=== PATIENT | male | born 1990 | race Caucasian/White ===

== ENCOUNTER 2021-08-25 15:03 | Inpatient (IN) | payer OTHER ==
[~2021-08-25] VITALS: Ht 170.2 cm; Wt 119.7 kg
[2021-08-25 19:00] VITALS: BP 138/75
[2021-08-25] MEDS ORDERED: FEXOFENADINE HCL 60 MG TABLET PO PRN (19:15)
[2021-08-25] MEDS ORDERED: ONDANSETRON HCL 4 MG TABLET PO PRN (19:15)
[2021-08-25] MEDS ORDERED: ACETAMINOPHEN 325 MG TABLET PO PRN (19:15)
[2021-08-25 21:20] VITALS: BP 145/80
[2021-08-25] MEDS: ClonazePAM 1 MG TABLET PO SCH (21:23)
[2021-08-25] MEDS: PRAZOSIN HCL 2 MG CAPSULE PO SCH (21:24)
[2021-08-25] MEDS: TraZODone HCL 100 MG TABLET PO SCH (21:24)
[2021-08-25] MEDS: CELECOXIB 200 MG CAPSULE PO SCH (21:25)
[2021-08-25] MEDS: DOCUSATE SODIUM 100 MG CAPSULE PO SCH (21:25)
[2021-08-25] MEDS: GABAPENTIN 300 MG CAPSULE PO SCH (21:25)
[2021-08-25] MEDS: ETHYL ALCOHOL 62% ANTISEPTIC NASAL INHALANT 0.6 ML AMPUL NASAL SCH (21:25)
[2021-08-25] MEDS: SENNA 187 MG TABLET PO SCH (21:26)
[2021-08-25] MEDS ORDERED: MELATONIN 3 MG TABLET PO ONE (21:45)
[2021-08-26] VITALS: BP 116/65
[2021-08-26] MEDS ORDERED: INFLUENZA VIRUS VACCINE QVS 2021-22 (6MO+)/PF 60 MCG/0.5 ML SYRINGE IM. ONE (03:00)
[2021-08-26 07:14] LABS: BASOPHILS % (AUTO) 0.5 % (0.0-2.0); EOSINOPHILS % (AUTO) 3.8 % (1.0-6.0); HEMATOCRIT 37.9 % (41-53); LYMPHOCYTES # (AUTO) 2.5 K/uL (1.0-4.8); LYMPHOCYTES % (AUTO) 40.2 % (22.0-44.0); MEAN CORPUSCULAR HEMOGLOBIN 29.2 pg (26.0-34.0); MEAN CORPUSCULAR HGB CONC 34.3 G/dL (31.0-37.0); MEAN CORPUSCULAR VOLUME 85 fL (80-100); MONOCYTES # (AUTO) 0.5 K/uL (0.1-1.0); MONOCYTES % (AUTO) 8.2 % (2.0-9.0); NEUTROPHILS # (AUTO) 2.9 K/uL (1.8-7.7); NEUTROPHILS % (AUTO) 47.3 % (40.0-70.0); PLATELET COUNT (AUTO) 241 K/uL (150-450); RED BLOOD CELL COUNT(AUTO) 4.44 MIL/uL (4.50-5.90); RED CELL DISTRIBUTION WIDTH 14.2 % (11.5-14.5)
[2021-08-26 07:45] LABS: ALANINE AMINOTRANSFERASE 90 U/L (12-78); ALBUMIN 3.7 g/dL (3.4-5.0); ALKALINE PHOSPHATASE 55 U/L (46-116); ANION GAP 5 mmol/L (8-16); ASPARTATE AMINOTRANSFERASE 30 U/L (15-37); BILIRUBIN,TOTAL 0.3 mg/dL (0.1-1.0); CALCIUM, TOTAL 9.1 mg/dL (8.8-10.5); CARBON DIOXIDE 30 mmol/L (22-29); CHLORIDE 104 mmol/L (98-107); CREATININE 0.95 mg/dL (0.60-1.30); GLOMERULAR FILTR. RATE CALC > 60 mL/min (>60); GLUCOSE,RANDOM 100 mg/dL (70-110); POTASSIUM 4.3 mmol/L (3.5-5.1); SODIUM SERUM 139 mmol/L (136-145); TOTAL PROTEIN, SERUM 7.3 g/dL (6.4-8.2); UREA NITROGEN, BLOOD 16 mg/dL (7-18)
[2021-08-26] MEDS: ETHYL ALCOHOL 62% ANTISEPTIC NASAL INHALANT 0.6 ML AMPUL NASAL SCH ×2 (08:28→21:00)
[2021-08-26] MEDS: ENOXAPARIN SODIUM 40 MG/0.4 ML PF SYRINGE SQ SCH (08:29)
[2021-08-26] MEDS: SERTRALINE HCL 100 MG TABLET PO SCH (08:29)
[2021-08-26] MEDS: DOCUSATE SODIUM 100 MG CAPSULE PO SCH ×2 (08:29→21:01)
[2021-08-26] MEDS: GABAPENTIN 300 MG CAPSULE PO SCH ×3 (08:29→21:01)
[2021-08-26] MEDS: MAGNESIUM OXIDE 400 MG TABLET PO SCH (08:30)
[2021-08-26] MEDS: CELECOXIB 200 MG CAPSULE PO SCH ×2 (08:30→17:46)
[2021-08-26] MEDS: ClonazePAM 1 MG TABLET PO SCH ×2 (08:30→21:01)
[2021-08-26 10:32] VITALS: BP 125/84
[2021-08-26] MEDS ORDERED: *PATIENT'S OWN MED [ENTER DRUG, DOSE, FREQUENCY IN COMMENTS] CLINICAL ONE (14:45)
[2021-08-26 16:28] VITALS: BP 149/84
[2021-08-26 20:10] VITALS: BP 132/88
[2021-08-26] MEDS: PRAZOSIN HCL 2 MG CAPSULE PO SCH (21:01)
[2021-08-26] MEDS: SENNA 187 MG TABLET PO SCH (21:01)
[2021-08-26] MEDS: TraZODone HCL 100 MG TABLET PO SCH (21:01)
[2021-08-27 06:00] VITALS: BP 115/60
[2021-08-27] MEDS: ETHYL ALCOHOL 62% ANTISEPTIC NASAL INHALANT 0.6 ML AMPUL NASAL SCH ×2 (08:06→20:51)
[2021-08-27] MEDS: CELECOXIB 200 MG CAPSULE PO SCH ×2 (08:07→17:43)
[2021-08-27] MEDS: GABAPENTIN 300 MG CAPSULE PO SCH ×3 (08:07→20:53)
[2021-08-27] MEDS: ENOXAPARIN SODIUM 40 MG/0.4 ML PF SYRINGE SQ SCH (08:07)
[2021-08-27] MEDS: LISDEXAMFETAMINE 40 MG PO SCH (08:07)
[2021-08-27] MEDS: SERTRALINE HCL 100 MG TABLET PO SCH (08:08)
[2021-08-27] MEDS: DOCUSATE SODIUM 100 MG CAPSULE PO SCH ×2 (08:08→20:51)
[2021-08-27] MEDS: MAGNESIUM OXIDE 400 MG TABLET PO SCH (08:08)
[2021-08-27] MEDS: ClonazePAM 1 MG TABLET PO SCH ×2 (08:16→20:51)
[2021-08-27 09:53] VITALS: BP 126/71
[2021-08-27] MEDS ORDERED: DiphenhydrAMINE HCL 50 MG CAPSULE PO ONE (14:15)
[2021-08-27] MEDS ORDERED: QUEtiapine FUMARATE 100 MG TABLET PO ONE (14:15)
[2021-08-27 17:45] VITALS: BP 160/68
[2021-08-27 20:50] VITALS: BP 115/51
[2021-08-27] MEDS: SENNA 187 MG TABLET PO SCH (20:51)
[2021-08-27] MEDS: HYPROMELLOSE 0.5% 15 ML OPHTHALMIC SOLUTION OU PRN (20:52)
[2021-08-27] MEDS: MELATONIN 3 MG TABLET PO SCH (20:52)
[2021-08-27] MEDS: PRAZOSIN HCL 1 MG CAPSULE PO SCH (20:52)
[2021-08-27] MEDS: TraZODone HCL 100 MG TABLET PO SCH (20:53)
[2021-08-28 04:00] VITALS: BP 108/45
[2021-08-28] MEDS: ClonazePAM 1 MG TABLET PO SCH ×2 (08:00→23:29)
[2021-08-28] MEDS: DOCUSATE SODIUM 100 MG CAPSULE PO SCH ×2 (08:00→23:29)
[2021-08-28] MEDS: GABAPENTIN 300 MG CAPSULE PO SCH ×3 (08:00→23:29)
[2021-08-28] MEDS: ENOXAPARIN SODIUM 40 MG/0.4 ML PF SYRINGE SQ SCH (08:00)
[2021-08-28] MEDS: SERTRALINE HCL 100 MG TABLET PO SCH (08:01)
[2021-08-28] MEDS: MAGNESIUM OXIDE 400 MG TABLET PO SCH (08:01)
[2021-08-28] MEDS: CELECOXIB 200 MG CAPSULE PO SCH ×2 (08:01→17:40)
[2021-08-28] MEDS: ETHYL ALCOHOL 62% ANTISEPTIC NASAL INHALANT 0.6 ML AMPUL NASAL SCH ×2 (08:02→23:29)
[2021-08-28] MEDS: LISDEXAMFETAMINE 40 MG PO SCH (08:30)
[2021-08-28 10:00] VITALS: BP 114/53
[2021-08-28 16:03] VITALS: BP 110/89
[2021-08-28] MEDS: MELATONIN 3 MG TABLET PO SCH (21:00)
[2021-08-28] MEDS: SENNA 187 MG TABLET PO SCH (23:28)
[2021-08-28] MEDS: PRAZOSIN HCL 1 MG CAPSULE PO SCH (23:29)
[2021-08-28] MEDS: TraZODone HCL 100 MG TABLET PO SCH (23:30)
[2021-08-29] VITALS: BP 118/83
[2021-08-29] MEDS: DOCUSATE SODIUM 100 MG CAPSULE PO SCH ×2 (08:05→21:12)
[2021-08-29] MEDS: GABAPENTIN 300 MG CAPSULE PO SCH ×3 (08:05→21:12)
[2021-08-29] MEDS: LISDEXAMFETAMINE 40 MG PO SCH (08:05)
[2021-08-29] MEDS: ClonazePAM 1 MG TABLET PO SCH ×2 (08:06→21:12)
[2021-08-29] MEDS: MAGNESIUM OXIDE 400 MG TABLET PO SCH (08:06)
[2021-08-29] MEDS: SERTRALINE HCL 100 MG TABLET PO SCH (08:06)
[2021-08-29] MEDS: ENOXAPARIN SODIUM 40 MG/0.4 ML PF SYRINGE SQ SCH (08:07)
[2021-08-29] MEDS: CELECOXIB 200 MG CAPSULE PO SCH ×2 (08:07→16:08)
[2021-08-29 08:43] VITALS: BP 113/68
[2021-08-29] MEDS: ETHYL ALCOHOL 62% ANTISEPTIC NASAL INHALANT 0.6 ML AMPUL NASAL SCH ×2 (08:48→21:12)
[2021-08-29] MEDS ORDERED: HYDROCODONE/ACETAMINOPHEN 5-325 MG TABLET PO PRN (12:50)
[2021-08-29 16:14] VITALS: BP 108/77
[2021-08-29 21:12] VITALS: BP 139/86
[2021-08-29] MEDS: SENNA 187 MG TABLET PO SCH (21:12)
[2021-08-29] MEDS: MELATONIN 3 MG TABLET PO SCH (21:12)
[2021-08-29] MEDS: TraZODone HCL 100 MG TABLET PO SCH (21:12)
[2021-08-29] MEDS: PRAZOSIN HCL 1 MG CAPSULE PO SCH (21:13)
[2021-08-30 03:00] VITALS: BP 107/44
[2021-08-30] MEDS: LISDEXAMFETAMINE 40 MG PO SCH (08:03)
[2021-08-30] MEDS: ClonazePAM 1 MG TABLET PO SCH ×2 (08:04→22:22)
[2021-08-30] MEDS: DOCUSATE SODIUM 100 MG CAPSULE PO SCH ×2 (08:04→22:22)
[2021-08-30] MEDS: ETHYL ALCOHOL 62% ANTISEPTIC NASAL INHALANT 0.6 ML AMPUL NASAL SCH ×2 (08:04→22:21)
[2021-08-30] MEDS: GABAPENTIN 300 MG CAPSULE PO SCH ×3 (08:04→22:22)
[2021-08-30] MEDS: ENOXAPARIN SODIUM 40 MG/0.4 ML PF SYRINGE SQ SCH (08:04)
[2021-08-30] MEDS: MAGNESIUM OXIDE 400 MG TABLET PO SCH (08:04)
[2021-08-30 09:00] VITALS: BP 111/63
[2021-08-30] MEDS: CELECOXIB 200 MG CAPSULE PO SCH ×2 (10:34→17:37)
[2021-08-30] MEDS: SERTRALINE HCL 100 MG TABLET PO SCH (10:34)
[2021-08-30] MEDS: HYPROMELLOSE 0.5% 15 ML OPHTHALMIC SOLUTION OU PRN (14:36)
[2021-08-30 16:05] VITALS: BP 131/79
[2021-08-30 21:00] VITALS: BP 138/80
[2021-08-30] MEDS: SENNA 187 MG TABLET PO SCH (22:22)
[2021-08-30] MEDS: MELATONIN 3 MG TABLET PO SCH (22:22)
[2021-08-30] MEDS: TraZODone HCL 100 MG TABLET PO SCH (22:22)
[2021-08-30] MEDS: PRAZOSIN HCL 1 MG CAPSULE PO SCH (22:22)
[2021-08-31] VITALS: BP 122/83
[2021-08-31] MEDS: ClonazePAM 1 MG TABLET PO SCH ×2 (08:39→21:51)
[2021-08-31] MEDS: DOCUSATE SODIUM 100 MG CAPSULE PO SCH ×2 (08:39→21:50)
[2021-08-31] MEDS: ETHYL ALCOHOL 62% ANTISEPTIC NASAL INHALANT 0.6 ML AMPUL NASAL SCH ×2 (08:39→21:50)
[2021-08-31] MEDS: GABAPENTIN 300 MG CAPSULE PO SCH ×3 (08:40→21:51)
[2021-08-31] MEDS: MAGNESIUM OXIDE 400 MG TABLET PO SCH (08:40)
[2021-08-31] MEDS: CELECOXIB 200 MG CAPSULE PO SCH ×2 (08:40→17:20)
[2021-08-31] MEDS: SERTRALINE HCL 100 MG TABLET PO SCH (08:40)
[2021-08-31] MEDS: LISDEXAMFETAMINE 40 MG PO SCH (08:40)
[2021-08-31] MEDS: ENOXAPARIN SODIUM 40 MG/0.4 ML PF SYRINGE SQ SCH (08:55)
[2021-08-31 09:00] VITALS: BP 102/49
[2021-08-31 16:30] VITALS: BP 130/74
[2021-08-31] MEDS: PRAZOSIN HCL 1 MG CAPSULE PO SCH (21:51)
[2021-08-31] MEDS: MELATONIN 3 MG TABLET PO SCH (21:51)
[2021-08-31] MEDS: SENNA 187 MG TABLET PO SCH (21:51)
[2021-08-31] MEDS: TraZODone HCL 100 MG TABLET PO SCH (21:51)
[2021-09-01] VITALS: BP 135/74
[2021-09-01] MEDS: GABAPENTIN 300 MG CAPSULE PO SCH ×3 (07:30→20:18)
[2021-09-01] MEDS: ENOXAPARIN SODIUM 40 MG/0.4 ML PF SYRINGE SQ SCH (07:30)
[2021-09-01] MEDS: LISDEXAMFETAMINE 40 MG PO SCH (07:30)
[2021-09-01] MEDS: DOCUSATE SODIUM 100 MG CAPSULE PO SCH ×2 (07:31→20:18)
[2021-09-01] MEDS: MAGNESIUM OXIDE 400 MG TABLET PO SCH (07:31)
[2021-09-01] MEDS: ClonazePAM 1 MG TABLET PO SCH ×2 (07:31→20:18)
[2021-09-01] MEDS: CELECOXIB 200 MG CAPSULE PO SCH ×2 (07:32→18:07)
[2021-09-01] MEDS: ETHYL ALCOHOL 62% ANTISEPTIC NASAL INHALANT 0.6 ML AMPUL NASAL SCH ×2 (07:32→20:18)
[2021-09-01] MEDS: SERTRALINE HCL 100 MG TABLET PO SCH (07:32)
[2021-09-01 08:01] VITALS: BP 147/59
[2021-09-01] MEDS: HYPROMELLOSE 0.5% 15 ML OPHTHALMIC SOLUTION OU PRN (10:00)
[2021-09-01] MEDS ORDERED: QUEtiapine FUMARATE 100 MG TABLET PO PRN (11:45)
[2021-09-01] MEDS ORDERED: DiphenhydrAMINE HCL 50 MG CAPSULE PO PRN (11:45)
[2021-09-01 18:09] VITALS: BP 147/107
[2021-09-01 20:15] VITALS: BP 148/85
[2021-09-01] MEDS: PRAZOSIN HCL 1 MG CAPSULE PO SCH (20:18)
[2021-09-01] MEDS: MELATONIN 3 MG TABLET PO SCH (20:18)
[2021-09-01] MEDS: SENNA 187 MG TABLET PO SCH (20:18)
[2021-09-01] MEDS: TraZODone HCL 100 MG TABLET PO SCH (20:18)
[2021-09-02 06:15] VITALS: BP 119/53
[2021-09-02] MEDS: ClonazePAM 1 MG TABLET PO SCH ×2 (08:18→21:31)
[2021-09-02] MEDS: MAGNESIUM OXIDE 400 MG TABLET PO SCH (08:21)
[2021-09-02] MEDS: GABAPENTIN 300 MG CAPSULE PO SCH ×3 (08:21→21:32)
[2021-09-02] MEDS: SERTRALINE HCL 100 MG TABLET PO SCH (08:21)
[2021-09-02] MEDS: LISDEXAMFETAMINE 40 MG PO SCH (08:21)
[2021-09-02] MEDS: CELECOXIB 200 MG CAPSULE PO SCH ×2 (08:22→18:14)
[2021-09-02] MEDS: ETHYL ALCOHOL 62% ANTISEPTIC NASAL INHALANT 0.6 ML AMPUL NASAL SCH ×2 (08:22→21:31)
[2021-09-02] MEDS: DOCUSATE SODIUM 100 MG CAPSULE PO SCH ×2 (08:22→21:31)
[2021-09-02] MEDS: ENOXAPARIN SODIUM 40 MG/0.4 ML PF SYRINGE SQ SCH (08:23)
[2021-09-02 08:27] LABS: BASOPHILS % (AUTO) 0.7 % (0.0-2.0); EOSINOPHILS % (AUTO) 5.1 % (1.0-6.0); HEMATOCRIT 37.6 % (41-53); HEMOGLOBIN 12.8 g/dL (13.5-17.5); LYMPHOCYTES # (AUTO) 2.2 K/uL (1.0-4.8); LYMPHOCYTES % (AUTO) 40.1 % (22.0-44.0); MEAN CORPUSCULAR HEMOGLOBIN 29.1 pg (26.0-34.0); MEAN CORPUSCULAR VOLUME 86 fL (80-100); MONOCYTES # (AUTO) 0.4 K/uL (0.1-1.0); NEUTROPHILS # (AUTO) 2.6 K/uL (1.8-7.7); NEUTROPHILS % (AUTO) 47.1 % (40.0-70.0); PLATELET COUNT (AUTO) 215 K/uL (150-450)
[2021-09-02 08:38] VITALS: BP 139/76
[2021-09-02 08:43] LABS: IRON, SERUM 54 mcg/dL (50-175)
[2021-09-02 08:58] LABS: ALANINE AMINOTRANSFERASE 148 U/L (12-78); ALBUMIN 3.8 g/dL (3.4-5.0); ALKALINE PHOSPHATASE 63 U/L (46-116); ANION GAP 7 mmol/L (8-16); ASPARTATE AMINOTRANSFERASE 52 U/L (15-37); BILIRUBIN,TOTAL 0.3 mg/dL (0.1-1.0); CALCIUM, TOTAL 8.6 mg/dL (8.8-10.5); CARBON DIOXIDE 28 mmol/L (22-29); CHLORIDE 105 mmol/L (98-107); CHOL/HDL RATIO 6.5 (4.2-7.3); CHOLESTEROL 195 mg/dL (131-200); CREATININE 1.07 mg/dL (0.60-1.30); FERRITIN 120 ng/mL (26-388); GLOMERULAR FILTR. RATE CALC > 60 mL/min (>60); GLUCOSE,RANDOM 102 mg/dL (70-110); HDL CHOLESTEROL 30 mg/dL (40-60); LDL CHOL (CALC.) 112 mg/dL (0-130); SODIUM SERUM 140 mmol/L (136-145); THYROID STIMULATING HORMONE 1.45 uIU/mL (0.36-3.74); TOTAL PROTEIN, SERUM 7.4 g/dL (6.4-8.2); TRIGLYCERIDES 264 mg/dL (15-150); UREA NITROGEN, BLOOD 17 mg/dL (7-18)
[2021-09-02 15:44] VITALS: BP 139/95
[2021-09-02 21:31] VITALS: BP 154/80
[2021-09-02] MEDS: ATORVASTATIN CALCIUM 10 MG TABLET PO SCH (21:31)
[2021-09-02] MEDS: SENNA 187 MG TABLET PO SCH (21:31)
[2021-09-02] MEDS: TraZODone HCL 100 MG TABLET PO SCH (21:32)
[2021-09-02] MEDS: MELATONIN 3 MG TABLET PO SCH (21:32)
[2021-09-02] MEDS: PRAZOSIN HCL 1 MG CAPSULE PO SCH (21:32)
[2021-09-03 00:40] VITALS: BP 103/63
[2021-09-03] MEDS: CELECOXIB 200 MG CAPSULE PO SCH ×2 (07:32→17:35)
[2021-09-03] MEDS: ETHYL ALCOHOL 62% ANTISEPTIC NASAL INHALANT 0.6 ML AMPUL NASAL SCH ×2 (07:59→20:44)
[2021-09-03] MEDS: LISDEXAMFETAMINE 40 MG PO SCH (07:59)
[2021-09-03] MEDS: DOCUSATE SODIUM 100 MG CAPSULE PO SCH ×2 (07:59→20:49)
[2021-09-03] MEDS: ENOXAPARIN SODIUM 40 MG/0.4 ML PF SYRINGE SQ SCH (08:00)
[2021-09-03] MEDS: SERTRALINE HCL 100 MG TABLET PO SCH (08:00)
[2021-09-03] MEDS: ClonazePAM 1 MG TABLET PO SCH ×2 (08:01→20:48)
[2021-09-03] MEDS: GABAPENTIN 300 MG CAPSULE PO SCH ×3 (08:01→20:49)
[2021-09-03] MEDS: MAGNESIUM OXIDE 400 MG TABLET PO SCH (08:01)
[2021-09-03 08:05] VITALS: BP 130/73
[2021-09-03 15:24] VITALS: BP 147/84
[2021-09-03] MEDS: MELATONIN 3 MG TABLET PO SCH (20:49)
[2021-09-03] MEDS: SENNA 187 MG TABLET PO SCH (20:49)
[2021-09-03] MEDS: ATORVASTATIN CALCIUM 10 MG TABLET PO SCH (20:50)
[2021-09-03 22:10] VITALS: BP 148/91
[2021-09-03] MEDS: PRAZOSIN HCL 2 MG CAPSULE PO SCH (22:12)
[2021-09-03] MEDS: TraZODone HCL 150 MG TABLET PO SCH (22:12)
[2021-09-04] VITALS: BP 122/62
[2021-09-04] MEDS: LISDEXAMFETAMINE 40 MG PO SCH (08:32)
[2021-09-04] MEDS: DOCUSATE SODIUM 100 MG CAPSULE PO SCH ×2 (08:32→21:43)
[2021-09-04] MEDS: CELECOXIB 200 MG CAPSULE PO SCH ×2 (08:32→19:49)
[2021-09-04] MEDS: MAGNESIUM OXIDE 400 MG TABLET PO SCH (08:32)
[2021-09-04] MEDS: ClonazePAM 1 MG TABLET PO SCH ×2 (08:32→21:44)
[2021-09-04] MEDS: ENOXAPARIN SODIUM 40 MG/0.4 ML PF SYRINGE SQ SCH (08:32)
[2021-09-04] MEDS: ETHYL ALCOHOL 62% ANTISEPTIC NASAL INHALANT 0.6 ML AMPUL NASAL SCH ×2 (08:33→21:45)
[2021-09-04] MEDS: GABAPENTIN 300 MG CAPSULE PO SCH ×3 (08:33→21:44)
[2021-09-04] MEDS: SERTRALINE HCL 100 MG TABLET PO SCH (08:33)
[2021-09-04 11:33] VITALS: BP 122/60
[2021-09-04 16:01] VITALS: BP 137/96
[2021-09-04] MEDS: SENNA 187 MG TABLET PO SCH (21:43)
[2021-09-04] MEDS: PRAZOSIN HCL 2 MG CAPSULE PO SCH (21:44)
[2021-09-04] MEDS: TraZODone HCL 150 MG TABLET PO SCH (21:44)
[2021-09-04] MEDS: MELATONIN 3 MG TABLET PO SCH (21:44)
[2021-09-04] MEDS: ATORVASTATIN CALCIUM 10 MG TABLET PO SCH (21:44)
[2021-09-05] VITALS: BP 121/63
[2021-09-05 08:00] VITALS: BP 106/53
[2021-09-05] MEDS: ENOXAPARIN SODIUM 40 MG/0.4 ML PF SYRINGE SQ SCH (08:45)
[2021-09-05] MEDS: ETHYL ALCOHOL 62% ANTISEPTIC NASAL INHALANT 0.6 ML AMPUL NASAL SCH ×2 (08:45→21:39)
[2021-09-05] MEDS: DOCUSATE SODIUM 100 MG CAPSULE PO SCH ×2 (08:46→21:39)
[2021-09-05] MEDS: SERTRALINE HCL 100 MG TABLET PO SCH (08:46)
[2021-09-05] MEDS: ClonazePAM 1 MG TABLET PO SCH ×2 (08:46→21:39)
[2021-09-05] MEDS: MAGNESIUM OXIDE 400 MG TABLET PO SCH (08:47)
[2021-09-05] MEDS: GABAPENTIN 300 MG CAPSULE PO SCH ×3 (08:47→21:39)
[2021-09-05] MEDS: CELECOXIB 200 MG CAPSULE PO SCH ×2 (08:47→16:15)
[2021-09-05] MEDS: LISDEXAMFETAMINE 40 MG PO SCH (08:47)
[2021-09-05] MEDS: HYPROMELLOSE 0.5% 15 ML OPHTHALMIC SOLUTION OU PRN (13:17)
[2021-09-05 16:30] VITALS: BP 132/64
[2021-09-05 21:00] VITALS: BP 138/71
[2021-09-05] MEDS: SENNA 187 MG TABLET PO SCH (21:39)
[2021-09-05] MEDS: TraZODone HCL 150 MG TABLET PO SCH (21:40)
[2021-09-05] MEDS: ATORVASTATIN CALCIUM 10 MG TABLET PO SCH (21:40)
[2021-09-05] MEDS: MELATONIN 3 MG TABLET PO SCH (21:40)
[2021-09-05] MEDS: PRAZOSIN HCL 2 MG CAPSULE PO SCH (21:40)
[2021-09-05] MEDS ORDERED: CELE200 PO (22:20)
[2021-09-05] MEDS ORDERED: LISD40CA PO (22:20)
[2021-09-05] MEDS ORDERED: SENN8.6T90 PO (22:20)
[2021-09-05] MEDS ORDERED: MELA3TAB89 PO (22:20)
[2021-09-05] MEDS ORDERED: CLON-598 PO (22:20)
[2021-09-05] MEDS ORDERED: ATOR10TA84 PO (22:20)
[2021-09-05] MEDS ORDERED: SERT-158 PO (22:20)
[2021-09-05] MEDS ORDERED: DOCU-270 PO (22:20)
[2021-09-05] MEDS ORDERED: GABA-1181 PO (22:20)
[2021-09-05] MEDS ORDERED: MAGN400T7 PO (22:20)
[2021-09-05] MEDS ORDERED: TRAZ150T80 PO (22:20)
[2021-09-05] MEDS ORDERED: PRAZ2 PO (22:20)
[2021-09-06] VITALS: BP 123/68
[2021-09-06] MEDS: CELECOXIB 200 MG CAPSULE PO SCH ×2 (08:24→16:44)
[2021-09-06] MEDS: ENOXAPARIN SODIUM 40 MG/0.4 ML PF SYRINGE SQ SCH (08:51)
[2021-09-06] MEDS: LISDEXAMFETAMINE 40 MG PO SCH (08:51)
[2021-09-06] MEDS: DOCUSATE SODIUM 100 MG CAPSULE PO SCH ×2 (08:51→21:21)
[2021-09-06] MEDS: ETHYL ALCOHOL 62% ANTISEPTIC NASAL INHALANT 0.6 ML AMPUL NASAL SCH ×2 (08:51→21:21)
[2021-09-06] MEDS: SERTRALINE HCL 100 MG TABLET PO SCH (08:51)
[2021-09-06] MEDS: ClonazePAM 1 MG TABLET PO SCH ×2 (08:52→21:21)
[2021-09-06] MEDS: GABAPENTIN 300 MG CAPSULE PO SCH ×3 (08:52→21:21)
[2021-09-06] MEDS: MAGNESIUM OXIDE 400 MG TABLET PO SCH (08:52)
[2021-09-06 08:55] VITALS: BP 127/70
[2021-09-06 15:36] VITALS: BP 122/72
[2021-09-06 21:20] VITALS: BP 133/79
[2021-09-06] MEDS: SENNA 187 MG TABLET PO SCH (21:21)
[2021-09-06] MEDS: PRAZOSIN HCL 2 MG CAPSULE PO SCH (21:21)
[2021-09-06] MEDS: MELATONIN 3 MG TABLET PO SCH (21:21)
[2021-09-06] MEDS: TraZODone HCL 150 MG TABLET PO SCH (21:21)
[2021-09-06] MEDS: ATORVASTATIN CALCIUM 10 MG TABLET PO SCH (21:21)
[2021-09-07] VITALS: BP 134/72
[2021-09-07 08:05] VITALS: BP 129/77
[2021-09-07] MEDS: CELECOXIB 200 MG CAPSULE PO SCH ×2 (08:20→16:52)
[2021-09-07] MEDS: ETHYL ALCOHOL 62% ANTISEPTIC NASAL INHALANT 0.6 ML AMPUL NASAL SCH ×2 (08:20→21:23)
[2021-09-07] MEDS: LISDEXAMFETAMINE 40 MG PO SCH (08:21)
[2021-09-07] MEDS: ENOXAPARIN SODIUM 40 MG/0.4 ML PF SYRINGE SQ SCH (08:22)
[2021-09-07] MEDS: DOCUSATE SODIUM 100 MG CAPSULE PO SCH ×2 (08:22→21:24)
[2021-09-07] MEDS: ClonazePAM 1 MG TABLET PO SCH ×2 (08:23→21:23)
[2021-09-07] MEDS: MAGNESIUM OXIDE 400 MG TABLET PO SCH (08:24)
[2021-09-07] MEDS: SERTRALINE HCL 100 MG TABLET PO SCH (08:25)
[2021-09-07] MEDS: GABAPENTIN 300 MG CAPSULE PO SCH ×3 (08:26→21:24)
[2021-09-07 16:53] VITALS: BP 138/82
[2021-09-07 21:20] VITALS: BP 143/81
[2021-09-07] MEDS: ATORVASTATIN CALCIUM 10 MG TABLET PO SCH (21:23)
[2021-09-07] MEDS: SENNA 187 MG TABLET PO SCH (21:23)
[2021-09-07] MEDS: PRAZOSIN HCL 2 MG CAPSULE PO SCH (21:24)
[2021-09-07] MEDS: MELATONIN 3 MG TABLET PO SCH (21:24)
[2021-09-07] MEDS: TraZODone HCL 150 MG TABLET PO SCH (21:24)
[2021-09-08] VITALS: BP 122/70
[2021-09-08] MEDS: CELECOXIB 200 MG CAPSULE PO SCH ×2 (08:27→17:39)
[2021-09-08 08:30] VITALS: BP 113/68
[2021-09-08] MEDS: ENOXAPARIN SODIUM 40 MG/0.4 ML PF SYRINGE SQ SCH (08:49)
[2021-09-08] MEDS: GABAPENTIN 300 MG CAPSULE PO SCH ×3 (08:49→21:15)
[2021-09-08] MEDS: MAGNESIUM OXIDE 400 MG TABLET PO SCH (08:50)
[2021-09-08] MEDS: SERTRALINE HCL 100 MG TABLET PO SCH (08:50)
[2021-09-08] MEDS: ETHYL ALCOHOL 62% ANTISEPTIC NASAL INHALANT 0.6 ML AMPUL NASAL SCH ×2 (08:50→21:15)
[2021-09-08] MEDS: LISDEXAMFETAMINE 40 MG PO SCH (08:50)
[2021-09-08] MEDS: ClonazePAM 1 MG TABLET PO SCH ×2 (08:50→21:15)
[2021-09-08] MEDS: DOCUSATE SODIUM 100 MG CAPSULE PO SCH ×2 (08:56→21:15)
[2021-09-08 09:56] LABS: ALANINE AMINOTRANSFERASE 141 U/L (12-78); ALKALINE PHOSPHATASE 80 U/L (46-116); ANION GAP 8 mmol/L (8-16); ASPARTATE AMINOTRANSFERASE 38 U/L (15-37); BILIRUBIN,TOTAL 0.3 mg/dL (0.1-1.0); CALCIUM, TOTAL 8.9 mg/dL (8.8-10.5); CARBON DIOXIDE 29 mmol/L (22-29); CHLORIDE 107 mmol/L (98-107); CREATININE 1.12 mg/dL (0.60-1.30); GLOMERULAR FILTR. RATE CALC > 60 mL/min (>60); GLUCOSE,RANDOM 115 mg/dL (70-110); POTASSIUM 4.1 mmol/L (3.5-5.1); SODIUM SERUM 144 mmol/L (136-145); TOTAL PROTEIN, SERUM 7.5 g/dL (6.4-8.2); UREA NITROGEN, BLOOD 15 mg/dL (7-18)
[2021-09-08 17:43] VITALS: BP 125/67
[2021-09-08 21:13] VITALS: BP 154/88
[2021-09-08] MEDS: MELATONIN 3 MG TABLET PO SCH (21:15)
[2021-09-08] MEDS: ATORVASTATIN CALCIUM 10 MG TABLET PO SCH (21:15)
[2021-09-08] MEDS: TraZODone HCL 150 MG TABLET PO SCH (21:15)
[2021-09-08] MEDS: PRAZOSIN HCL 2 MG CAPSULE PO SCH (21:15)
[2021-09-08] MEDS: SENNA 187 MG TABLET PO SCH (22:23)
[2021-09-09 04:20] VITALS: BP 108/53
[2021-09-09] MEDS: ENOXAPARIN SODIUM 40 MG/0.4 ML PF SYRINGE SQ SCH (09:27)
[2021-09-09] MEDS: DOCUSATE SODIUM 100 MG CAPSULE PO SCH (09:28)
[2021-09-09] MEDS: LISDEXAMFETAMINE 40 MG PO SCH (09:28)
[2021-09-09] MEDS: ETHYL ALCOHOL 62% ANTISEPTIC NASAL INHALANT 0.6 ML AMPUL NASAL SCH (09:28)
[2021-09-09] MEDS: GABAPENTIN 300 MG CAPSULE PO SCH (09:29)
[2021-09-09] MEDS: ClonazePAM 1 MG TABLET PO SCH (09:29)
[2021-09-09] MEDS: MAGNESIUM OXIDE 400 MG TABLET PO SCH (09:29)
[2021-09-09] MEDS: CELECOXIB 200 MG CAPSULE PO SCH (09:29)
[2021-09-09 09:30] VITALS: BP 115/62
[2021-09-09] MEDS: SERTRALINE HCL 100 MG TABLET PO SCH (09:30)
[2021-09-09 14:16] LABS: APPEARANCE,URINE CLEAR (CLEAR); BILIRUBIN,URINE NEGATIVE (NEGATIVE); GLUCOSE, URINE (UA) NEGATIVE (NEGATIVE); KETONES,URINE NEGATIVE (NEGATIVE); LEUKOCYTE ESTERASE ,URINE NEGATIVE (NEGATIVE); NITRATE,URINE NEGATIVE (NEGATIVE); OCCULT BLOOD,URINE NEGATIVE (NEGATIVE); PH,URINE 6.5 (5.0-8.0); PROTEIN,URINE NEGATIVE (NEGATIVE); UROBILINOGEN,URINE 0.2 mg/dL (<=1.0)
== END 2021-09-09 15:20 | disposition home or self-care (01) | DRG 948 ==
LOC: 2WR 18:28
PROVIDERS: ADMIT Physical Medicine & Rehabilitation; ATTEND Physical Medicine & Rehabilitation
DX: R53.1 Weakness (principal); F84.0 Autistic disorder; Z68.41 Body mass index [BMI] 40.0-44.9, adult; E78.1 Pure hyperglyceridemia; E66.01 Morbid (severe) obesity due to excess calories; F43.10 Post-traumatic stress disorder, unspecified; G47.33 Obstructive sleep apnea (adult) (pediatric); G83.9 Paralytic syndrome, unspecified; F32.9 Major depressive disorder, single episode, unspecified; F90.9 Attention-deficit hyperactivity disorder, unspecified type; G47.00 Insomnia, unspecified; K59.00 Constipation, unspecified; R74.01 Elevation of levels of liver transaminase levels; G56.03 Carpal tunnel syndrome, bilateral upper limbs; Z82.49 Family history of ischemic heart disease and other diseases of the circulatory system; Z86.16 Personal history of COVID-19; Z87.820 Personal history of traumatic brain injury; Z79.899 Other long term (current) drug therapy
CPT/HCPCS: 80053; 80061; 81003; 82607; 82728; 82746; 83036; 83540; 83735; 84443; 85025; 87081; 87086; 92507; 92523; 93970; 94660; 97110; 97112; 97116; 97150; 97163; 97530; 97535; 99366; J1650; Q0162; Q9967